=== PATIENT | male | born 1960 | race Caucasian/White ===

== ENCOUNTER 2017-12-12 01:28 | Emergency (ER) | payer SELFPAY, OTHER ==
[2017-12-12] MEDS: LIDOCAINE 2% 20 ML VIAL. INJ (01:45)
[2017-12-12] MEDS ORDERED: LIDOCAINE 2% 20 ML VIAL. (01:46)
== END 2017-12-12 03:30 | disposition home or self-care (01) ==
LOC: ER 01:28
DX: T76.21XA Adult sexual abuse, suspected, initial encounter (principal); S01.81XA Laceration without foreign body of other part of head, initial encounter; Z88.0 Allergy status to penicillin; Y08.89XA Assault by other specified means, initial encounter; Y93.89 Activity, other specified; Y92.89 Other specified places as the place of occurrence of the external cause; Y99.8 Other external cause status
CPT/HCPCS: 12013; 99283

== ENCOUNTER 2018-07-05 13:56 | Emergency (ER) | payer OTHER ==
[~2018-07-05] VITALS: Ht 182.9 cm; Wt 99.8 kg
[2018-07-05 14:14] VITALS: BP 126/83
[2018-07-05] MEDS ORDERED: BACI3.5O8 OS (14:50)
[2018-07-05] MEDS ORDERED: CEPH-264 PO (14:50)
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
== END 2018-07-05 15:06 | disposition home or self-care (01) ==
LOC: ER 13:56
DX: T23.202A Burn of second degree of left hand, unspecified site, initial encounter (principal); F10.20 Alcohol dependence, uncomplicated; Z88.0 Allergy status to penicillin; X16.XXXA Contact with hot heating appliances, radiators and pipes, initial encounter; Y93.89 Activity, other specified; Y92.89 Other specified places as the place of occurrence of the external cause; Y99.8 Other external cause status
CPT/HCPCS: 99283

== ENCOUNTER 2019-01-10 09:37 | Emergency (ER) | payer OTHER ==
[2018-12-29 05:16] VITALS: BP 142/100
[~2019-01-10] VITALS: Ht 182.9 cm; Wt 99.8 kg
[~2019-01-10 09:37] MED LIST: BACI3.5O8 OS; CEPH-264 PO; TRAM50TA PO
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
== END 2019-01-10 10:42 | disposition home or self-care (01) ==
LOC: ER 09:37
DX: S01.81XD Laceration without foreign body of other part of head, subsequent encounter (principal); Z88.0 Allergy status to penicillin; Y08.89XD Assault by other specified means, subsequent encounter
CPT/HCPCS: 99282